=== PATIENT | male | born 1945 | race Caucasian/White ===

== ENCOUNTER → 2017-09-01 | Outpatient (CLI) | payer BC, MEDICARE ==
[2017-09-01] MEDS: IOHEXOL 300 MG/ML 100ML VIAL. IV (10:02)
[2017-09-01] MEDS: IOHEXOL 240 MG/ML 50ML VIAL. PO (10:03)
[2017-09-01 10:05] LABS: ISTAT CREATININE 1.6 mg/dL (0.7-1.3)
== END | disposition home or self-care (01) ==
LOC: KCIC CT 08:18
DX: K80.20 Calculus of gallbladder without cholecystitis without obstruction (principal); N40.0 Benign prostatic hyperplasia without lower urinary tract symptoms; K57.32 Diverticulitis of large intestine without perforation or abscess without bleeding
CPT/HCPCS: 74177; 82565; Q9966; Q9967

== ENCOUNTER → 2017-10-15 | Day surgery (SDC) | payer BC, MEDICARE ==
[~2017-10-15] MED LIST: LIDOCAINE 1% PF 2 ML VIAL. ID; LIDOCAINE 2% PF Vial for OR 5 ML VIAL.; MORPHINE SULFATE 2 MG/ML DISP.SYRIN. IV; ONDANSETRON PF 4 MG/2 ML VIAL. IV; PHENYLEPHRINE 10 MG/ML VIAL.; PROCHLORPERAZINE 10 MG/2 ML VIAL. IV; PROPOFOL 40 ML IV; fentaNYL PF VIAL 100 MCG/2 ML VIAL IV
[2017-10-15] MEDS: IV RINGERS,LACTATED 1000ML 1,000 ML IV (09:24)
== END | disposition home or self-care (01) ==
LOC: SURG 09:02
DX: K57.92 Diverticulitis of intestine, part unspecified, without perforation or abscess without bleeding (principal); K64.0 First degree hemorrhoids; K63.89 Other specified diseases of intestine; I25.2 Old myocardial infarction; I11.0 Hypertensive heart disease with heart failure; I50.9 Heart failure, unspecified; Z85.828 Personal history of other malignant neoplasm of skin; Z94.1 Heart transplant status; Z88.8 Allergy status to other drugs, medicaments and biological substances; Z79.899 Other long term (current) drug therapy; G47.30 Sleep apnea, unspecified; Z80.3 Family history of malignant neoplasm of breast; Z83.3 Family history of diabetes mellitus; Z82.49 Family history of ischemic heart disease and other diseases of the circulatory system; Z79.82 Long term (current) use of aspirin; Z95.1 Presence of aortocoronary bypass graft
CPT/HCPCS: 45380; 88305; J2704